=== PATIENT | male | born 1955 | race Hispanic/Latino ===

== ENCOUNTER 2020-11-07 14:13 | Emergency (ER) | payer MEDICARE ==
[~2020-11-07] VITALS: Ht 175.3 cm; Wt 81.6 kg
[2020-11-07] MEDS ORDERED: ULTRAM 50MG50 MG PO (14:27)
== END 2020-11-07 15:54 | disposition home or self-care (01) ==
LOC: FSED 14:30
DX: S93.402A Sprain of unspecified ligament of left ankle, initial encounter (principal); X50.1XXA Overexertion from prolonged static or awkward postures, initial encounter; Y93.01 Activity, walking, marching and hiking; I10 Essential (primary) hypertension; E78.5 Hyperlipidemia, unspecified
CPT/HCPCS: 99284